=== PATIENT | male | born 1960 | race Caucasian/White ===

== ENCOUNTER 2018-09-09 07:13 | Day surgery (SDC) | payer OTHER ==
[~2018-09-09] VITALS: Ht 182.9 cm; Wt 125.1 kg
[2018-09-09] MEDS ORDERED: SODIUM CHLORIDE 0.9% 1,000 ML IV SCH (07:30)
[2018-09-09 07:48] VITALS: BP 104/66
[2018-09-09 08:30] LABS: INTERNATIONAL NORMALIZED RATIO 1.05 (0.93-1.1)
[2018-09-09] MEDS ORDERED: LIDOCAINE-MPF 1%, 5ML ONE ×2 (09:55)
[2018-09-09] MEDS ORDERED: MIDAZOLAM 1 MG/ML, 5ML ONE (09:59)
[2018-09-09] MEDS ORDERED: FENTANYL PF 100 MCG/2ML ONE (09:59)
[2018-09-09] MEDS ORDERED: FLUMAZENIL 0.1 MG/1 ML, 5ML ONE (09:59)
[2018-09-09] MEDS ORDERED: NALOXONE 1 MG/ML, 2ML ONE (10:00)
[2018-09-09] MEDS ORDERED: OMNIPAQUE 350 MG/ML, 100ML BOTTLE ONE (10:26)
== END 2018-09-09 12:40 | disposition home or self-care (01) ==
LOC: OUT 07:13 → EDSTATUS 09:30 → OUT 12:40
PROVIDERS: ATTEND Internal Medicine Hematology & Oncology
DX: K76.9 Liver disease, unspecified (principal); E11.9 Type 2 diabetes mellitus without complications; I10 Essential (primary) hypertension; Z72.89 Other problems related to lifestyle; Z88.1 Allergy status to other antibiotic agents; Z87.891 Personal history of nicotine dependence; Z79.84 Long term (current) use of oral hypoglycemic drugs
CPT/HCPCS: 36415; 47000; 74177; 77012; 85610; 88307; 99156; 99157; J2250; J3010; J7030; Q9967; 88305; 88341; 88342; J2310